=== PATIENT | female | born 1960 | race Caucasian/White ===

== ENCOUNTER 2020-07-21 19:16 | Emergency (ER) | payer SELFPAY ==
[2020-07-21] MEDS: Aspirin 81 MG Tab.Chew PO ONE ×2 (19:41→19:43)
--- NOTE | 2020-07-21 19:57 | PCM.EKG ---
#1 Interpretation EKG Date: 07/21/20 Time: 19:16 Rhythm: NSR Rate (Beats/Min): 76 [place]: Normal P-Wave: Present QRS: Normal ST-T: Normal QT: Normal Comparison: NA - No Prior EKG EKG Interpretation Comments: Sinus Rhythm with occasional PVC
--- NOTE | 2020-07-21 20:01 | CR ---
INDICATION: weakness, shortness of breath CHEST, ONE VIEW An AP radiograph of the chest was performed. Comparison: No previous studies are currently available for comparison. The lungs appear clear and no pleural effusions are identified. The cardiomediastinal silhouette and pulmonary vasculature appear normal, as do the visualized bones. IMPRESSION: No acute intrathoracic abnormality identified. DON NIX MD [facility] Dictated by: Stephen Nix MD @ 07/21/2020 19:59:16 (Electronically Signed)
[2020-07-21 20:17] LABS: BLOOD UREA NITROGEN,BUN 13 mg/dL (7.0-18.0); CARBON DIOXIDE,CO2 27.1 mmol/L (21.0-32.0); CHLORIDE,CL 103 mmol/L (98-107); GLUCOSE RANDOM 106 mg/dL (74-106); POTASSIUM,K 3.3 mmol/L (3.5-5.1); SODIUM,NA 142 mmol/L (136-145)
[2020-07-21] MEDS ORDERED: Potassium Chloride 10% 20 MEQ/15 ML Soln 30 ML UD Cup PO ONE (20:31)
--- NOTE | 2020-07-21 21:07 | EDM.PDOC ---
ED HPI GENERAL MEDICAL PROBLEM - General Chief Complaint: Chest Pain Stated Complaint: CHEST PAIN/WEAK LEFT SIDE Time Seen by Provider: 07/21/20 19:20 - History of Present Illness INITIAL COMMENTS - FREE TEXT/NARRATIVE: CHIEF COMPLAINT(S): "My thyroid has been messed up since Covid." HISTORY OF PRESENT ILLNESS: This is a 60-year-old woman without any significant past medical history who comes to the emergency department with a chief complaint of "my thyroid has been messed up since Covid." The patient states that she had Covid earlier this year and since that time she found out that her thyroid has been messed up. 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 She said that she has been feeling weak, tired, her hair seems to be falling out, her nails are brittle and her skin is dry. She denies any chest pain or shortness of breath. She denies any exertional dyspnea or lower extremity swelling. She states that she does just feel tired all the time. She states that she "cannot live like this anymore." She denied any suicidal ideation, suicidal attempt or homicidal ideation. She denies any history of CAD or CHF. She denies any recent travel, recent surgery, prior history of DVT or PE. She denies any other symptoms. REVIEW OF SYSTEMS: Constitutional: Positive for fatigue. Denies fever, chills. Eyes: Denies eye pain Ears, Nose, Mouth, & Throat: Denies earache, sore throat Cardiovascular: Denies chest pain, palpitations, edema Respiratory: Denies shortness of breath Gastrointestinal: Positive for nausea. Denies vomiting, diarrhea, hematochezia. Genitourinary: Denies hematuria, dysuria Skin:POsitive for dry skin and brittle nails MSK: Denies joint pain Neurological: Denies blurred vision, numbness, tingling, weakness. Psychiatric: Positive for felling depressed. PAST MEDICAL HISTORY: As per history of present illness and as reviewed below otherwise noncontributory. SURGICAL HISTORY: As per history of present illness and as reviewed below otherwise noncontributory. SOCIAL HISTORY: As per history of present illness and as reviewed below otherwise noncontributory. FAMILY HISTORY: As per history of present illness and as reviewed below otherwise noncontributory. EXAMINATION OF ORGAN SYSTEMS/BODY AREAS: Constitutional: Blood pressure was 162/73, heart rate 73, respiratory rate 18 with an oxygen saturation of 97% on room air. Temperature 36.6 General: Tearful appearing woman who is in no other acute distress Psychiatric: Tearful, appears depressed Eyes: No scleral icterus or conjunctival erythema pupils are equal round reactive to light. Extraocular movements intact. No periorbital swelling ENMT: Moist mucous membranes. No pharyngeal erythema no thyromegaly noted. Neck is supple. Trachea is midline. Cardiovascular: Regular, rate, and rhythm. No gallops, murmurs, or rubs. Bilateral upper extremity pulses symmetric and intact. No peripheral edema. No JVD. Respiratory: Lungs clear to auscultation bilaterally. No wheezes, rales, or rhonchi. Gastrointestinal: Soft, non-tender, non-distended. Normoactive bowel sounds Genitourinary: No suprapubic tenderness Musculoskeletal: Normal range of motion. Skin: Skin appears mildly dry without any excoriations. The patient has what appears to be thinning of her nails with some blackish streaks distally. Neurological: Alert, GCS 15 strength and sensation grossly intact. MEDICAL DECISION MAKING AND COURSE IN THE ED WITH INTERPRETATION/REVIEW OF DIAGNOSTIC STUDIES: This is a 60-year-old woman without any significant past medical history with recent COVID-19 infection with resultant hypothyroidism who presents with fatigue, weakness, signs of early depression, and brittle hair and nails. At this time I do believe her symptoms are likely secondary to hypothyroidism. However given her age will undergo a cardiac work-up. EKG was obtained which ischemia. Will obtain CBC, CMP, TSH, T4, urinalysis. Given the duration of her symptoms we will only obtain 1 troponin. The patient denied any chest pain. Therefore it is unlikely that she has ACS. Patient is neurologically intact therefore I do believe any imaging is indicated. Patient refused aspirin at this time because she does not feel like it is her heart. Laboratory: CBC is unremarkable. CMP reveals hypokalemia at 3.3 otherwise unremarkable. TSH is 8.7. Free T4 is 0.70 indicating hypothyroidism. Urinalysis was a clean catch and was trace for leukocyte esterase, negative for nitrites, and negative for blood. Interpretation negative The radiological images were viewed by myself along with reading the report from the radiologist. Chest x-ray does not reveal any acute cardiopulmonary process. On reevaluation, the patient was allowed her tearful and her blood pressure remained stable. I did have a lengthy discussion with her regarding hypothyroidism. She states that she does have an ultrasound tomorrow of her thyroid that was arranged by her primary care physician. I encouraged her to keep an ultrasound appointment and that managing her hypothyroidism is a long- term process. Discussed the importance of following up with her primary care physician. She was amenable to discharge at this time and had no further questions. She is to return for any new or worsening symptoms. DISPOSITION: The patient was discharged home in stable condition CONDITION: Fair PROCEDURES: None FINAL IMPRESSION(S)/DIAGNOSES: 1. Acute fatigue secondary to hypothyroidism 2. Acute brittle nails dry skin secondary to hypothyroidism Mihai Velez M.D. - Related Data Allergies Allergy/AdvReac Type Severity Reaction Status Date / Time No Known Allergies Allergy Verified 07/21/20 19:47 Home Meds: Home Meds Chlorthalidone 25 mg PO DAILY 07/21/20 [History] Thyroid,Pork [Traffic Signal Supervisor Maintenance Thyroid] 1 tab PO DAILY 07/21/20 [History] lisinopriL [Lisinopril] 5 mg PO DAILY 07/21/20 [History] Ondansetron [Zofran ODT] 4 mg PO Q6H PRN #10 tab.dis 07/23/20 [Rx] Past Medical History HEENT History: Reports: None Cardiovascular History: Reports: Hypertension Respiratory History: Reports: COPD Gastrointestinal History: Reports: None Genitourinary History: Reports: None 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: Musculoskeletal History: Reports: None Neurological History: Reports: None Psychiatric History: Reports: None Endocrine/Metabolic History: Reports: Other (See Below) Other Endocrine/Metabolic History: Ward 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 Pump Model 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: None Hematologic History: Reports: None Immunologic History: Reports: None Oncologic (Cancer) History: Reports: None Dermatologic History: Reports: None - Infectious Disease History Infectious Disease History: Reports: Chicken Pox, Measles - Past Surgical History Head Surgeries/Procedures: Reports: None Female Surgical History: Reports: Section Social & Family History - Caffeine Use Caffeine Use: Reports: Coffee ED ROS GENERAL - Review of Systems Review Of Systems: See Below ED EXAM, GENERAL - Physical Exam Exam: See Below Course - Vital Signs Last Recorded V/S: Last Vital Signs Temp 36.2 C 07/21/20 21:15 Pulse 70 07/21/20 21:15 Resp 18 07/21/20 21:15 BP 143/84 H 07/21/20 21:15 Pulse Ox 97 07/21/20 21:15 - Orders/Labs/Meds Labs: Laboratory Tests 07/21/20 07/21/20 07/21/20 Range/Units 19:25 19:25 19:25 WBC 9.38 (4.0-11.0) K/uL RBC 5.14 (4.30-5.90) M/uL Hgb 16.0 (12.0-16.0) g/dL Hct 46.6 H (36.0-46.0) % MCV 90.7 (80.0-98.0) fL MCH 31.1 (27.0-32.0) pg MCHC 34.3 (31.0-37.0) g/dL RDW Std Deviation 47.1 (28.0-62.0) fl RDW Coeff of Rubén 14 (11.0-15.0) % Plt Count 380 (150-400) K/uL MPV 10.00 (7.40-12.00) fL Neut % (Auto) 61.8 (48.0-80.0) % Lymph % (Auto) 30.3 (16.0-40.0) % [place] % (Auto) 7.2 (0.0-15.0) % Eos % (Auto) 0.4 (0.0-7.0) % Baso % (Auto) 0.3 (0.0-1.5) % Neut # (Auto) 5.8 H (1.4-5.7) K/uL Lymph # (Auto) 2.8 H (0.6-2.4) K/uL [place] # (Auto) 0.7 (0.0-0.8) K/uL Eos # (Auto) 0.0 (0.0-0.7) K/uL Baso # (Auto) 0.0 (0.0-0.1) K/uL Nucleated RBC % 0.0 /100WBC Nucleated RBCs # 0 K/uL Sodium 142 (136-145) mmol/L Potassium 3.3 L (3.5-5.1) mmol/L Chloride 103 (98-107) mmol/L Carbon Dioxide 27.1 (21.0-32.0) mmol/L BUN 13 (7.0-18.0) mg/dL Creatinine 0.9 (0.6-1.0) mg/dL Est Cr Clr Drug Dosing TNP Estimated GFR (MDRD) > 60.0 ml/min Glucose 106 (74-106) mg/dL Calcium 10.0 (8.5-10.1) mg/dL Magnesium 2.3 (1.8-2.4) mg/dL Total Bilirubin 0.3 (0.2-1.0) mg/dL AST 15 (15-37) IU/L ALT 18 (14-63) IU/L Alkaline Phosphatase 101 (46-116) U/L B-Natriuretic Peptide 6 (<100) PG/ML Total Protein 8.5 H (6.4-8.2) g/dL Albumin 4.3 (3.4-5.0) g/dL Globulin 4.2 H (2.6-4.0) g/dL Albumin/Globulin Ratio 1.0 (0.9-1.6) Free T4 0.70 L (0.76-1.46) ng/dL TSH 3rd Generation 8.87 H (0.36-3.74) uIU/mL Urine Color Urine Appearance Urine pH (5.0-8.0) Ur Specific [place] (1.001-1.035) Urine Protein (NEGATIVE) mg/dL Urine Glucose (UA) (NEGATIVE) mg/dL Urine Ketones (NEGATIVE) mg/dL Urine Occult Blood (NEGATIVE) Urine Nitrite (NEGATIVE) Urine Bilirubin (NEGATIVE) Urine Urobilinogen (<2.0) EU/dL Ur Leukocyte Esterase (NEGATIVE) Urine RBC (0-2/HPF) Urine WBC (0-5/HPF) Ur Epithelial Cells (NONE-FEW) Urine Bacteria (NEGATIVE) 07/21/20 Range/Units 19:47 WBC (4.0-11.0) K/uL RBC (4.30-5.90) M/uL Hgb (12.0-16.0) g/dL Hct (36.0-46.0) % MCV (80.0-98.0) fL MCH (27.0-32.0) pg MCHC (31.0-37.0) g/dL RDW Std Deviation (28.0-62.0) fl RDW Coeff of Rubén (11.0-15.0) % Plt Count (150-400) K/uL MPV (7.40-12.00) fL Neut % (Auto) (48.0-80.0) % Lymph % (Auto) (16.0-40.0) % [place] % (Auto) (0.0-15.0) % Eos % (Auto) (0.0-7.0) % Baso % (Auto) (0.0-1.5) % Neut # (Auto) (1.4-5.7) K/uL Lymph # (Auto) (0.6-2.4) K/uL [place] # (Auto) (0.0-0.8) K/uL Eos # (Auto) (0.0-0.7) K/uL Baso # (Auto) (0.0-0.1) K/uL Nucleated RBC % /100WBC Nucleated RBCs # K/uL Sodium (136-145) mmol/L Potassium (3.5-5.1) mmol/L Chloride (98-107) mmol/L Carbon Dioxide (21.0-32.0) mmol/L BUN (7.0-18.0) mg/dL Creatinine (0.6-1.0) mg/dL Est Cr Clr Drug Dosing Estimated GFR (MDRD) ml/min Glucose (74-106) mg/dL Calcium (8.5-10.1) mg/dL Magnesium (1.8-2.4) mg/dL Total Bilirubin (0.2-1.0) mg/dL AST (15-37) IU/L ALT (14-63) IU/L Alkaline Phosphatase (46-116) U/L B-Natriuretic Peptide (<100) PG/ML Total Protein (6.4-8.2) g/dL Albumin (3.4-5.0) g/dL Globulin (2.6-4.0) g/dL Albumin/Globulin Ratio (0.9-1.6) Free T4 (0.76-1.46) ng/dL TSH 3rd Generation (0.36-3.74) uIU/mL Urine Color YELLOW Urine Appearance CLEAR Urine pH 6.5 (5.0-8.0) Ur Specific [place] 1.020 (1.001-1.035) Urine Protein NEGATIVE (NEGATIVE) mg/dL Urine Glucose (UA) NEGATIVE (NEGATIVE) mg/dL Urine Ketones NEGATIVE (NEGATIVE) mg/dL Urine Occult Blood NEGATIVE (NEGATIVE) Urine Nitrite NEGATIVE (NEGATIVE) Urine Bilirubin NEGATIVE (NEGATIVE) Urine Urobilinogen 0.2 (<2.0) EU/dL Ur Leukocyte Esterase TRACE H (NEGATIVE) Urine RBC 0-1 (0-2/HPF) Urine WBC 0-3 (0-5/HPF) Ur Epithelial Cells FEW (NONE-FEW) Urine Bacteria RARE (NEGATIVE) Meds: Medications Discontinued Medications Generic Name Dose Route Start Last Admin Trade Name Freq PRN Reason Stop Dose Admin Aspirin 324 mg 07/21/20 19:36 07/21/20 19:43 Aspirin PO 07/21/20 19:37 Not Given ONETIME ONE Potassium Chloride 40 meq 07/21/20 20:31 07/21/20 20:41 Potassium Chloride PO 07/21/20 20:32 40 meq ONETIME ONE Administration Departure - Departure Time of Disposition: 21:01 Disposition: Home, Self-Care 01 Condition: Fair Clinical Impression: Post-COVID syndrome Hypothyroid Qualifiers: Hypothyroidism type: unspecified Qualified Code(s): E03.9 - Hypothyroidism, unspecified - Discharge Information *PRESCRIPTION DRUG MONITORING PROGRAM REVIEWED*: No *COPY OF PRESCRIPTION DRUG MONITORING REPORT IN PATIENT JAMARCUS: No Prescriptions: Ondansetron [Zofran ODT] 4 mg PO Q6H PRN #10 tab.dis PRN Reason: Nausea Instructions: Hypokalemia, Hypothyroidism Referrals: Macy Lewis [Primary Care Provider] - Forms: ED Department Discharge Additional Instructions: You evaluate today on an emergent basis. I do believe all the symptoms you are experiencing are secondary to your hypothyroidism. Please reference the materials I provided and discussed with you regarding symptoms of hypothyroidism. Hypothyroid treatment can take months to optimize and symptoms will gradually lessen. Given that your primary care physician just changed your medication I do recommend continued use of this medication and to follow-up with your ultrasound tomorrow. I do recommend that she follow-up with her in 1 week for repeat labs to evaluate the trend. If you have any new or worsening symptoms such as chest pain, shortness of breath, passing out, or weakness in one of your extremities, trouble walking, trouble speaking or trouble swallowing please return to the emergency department. [facility] [address] [place] [address] [facility] [address] [place] [address] The patient is informed of any results of their evaluation and diagnostic workup and all questions are answered. They are given discharge instructions and return precautions. The patient is stable for discharge. The patient states they understand and agree with the plan and that they will return if their symptoms get worse or if they have any new concerns. The following information is given to patients seen in the emergency department who are being discharged to home. This information is to outline your options for follow-up care. We provide all patients seen in our emergency department with a follow-up referral. The need for follow-up, as well as the timing and circumstances, are variable depending upon the specifics of your emergency department visit. If you don't have a primary care physician on staff, we will provide you with a referral. We always advise you to contact your personal physician following an emergency department visit to inform them of the circumstance of the visit and for follow-up with them and/or the need for any referrals to a consulting specialist. The emergency department will also refer you to a specialist when appropriate. This referral assures that you have the opportunity for follow-up care with a specialist. All of these measure are taken in an effort to provide you with optimal care, which includes your follow-up. Under all circumstances we always encourage you to contact your private physician who remains a resource for coordinating your care. When calling for follow-up care, please make the office aware that this follow-up is from your recent emergency room visit. If for any reason you are refused follow-up, please contact the [facility] Emergency Department at and asked to speak to the emergency department charge nurse. Sepsis Event Note (ED) - Evaluation Sepsis Screening Result: No Definite Risk
== END 2020-07-21 21:15 | disposition home or self-care (01) ==
LOC: MW.ED 19:16
DX: E03.9 Hypothyroidism, unspecified (principal); R53.1 Weakness; R53.83 Other fatigue; I10 Essential (primary) hypertension; J44.9 Chronic obstructive pulmonary disease, unspecified; Z79.899 Other long term (current) drug therapy; Z86.16 Personal history of COVID-19
CPT/HCPCS: 36415; 71045; 80053; 81001; 83735; 83880; 84439; 84443; 85025; 93005; 99285; A9270; 99283

== ENCOUNTER 2021-10-24 12:19 | Emergency (ER) | payer SELFPAY ==
[2021-10-24] MEDS ORDERED: Sodium Chloride 0.9% 10 ML Syringe FLUSH PRN (12:21)
[2021-10-24] MEDS ORDERED: Aspirin 81 MG Tab.Chew PO ONE (12:21)
[2021-10-24] MEDS ORDERED: Sodium Chloride 0.9% 2.5 ML Syringe FLUSH PRN (12:21)
[2021-10-24 13:02] LABS: BLOOD UREA NITROGEN,BUN 14 mg/dL (7.0-18.0); CARBON DIOXIDE,CO2 29.5 mmol/L (21.0-32.0); CHLORIDE,CL 99 mmol/L (98-107); GLUCOSE RANDOM 108 mg/dL (74-106); POTASSIUM,K 3.3 mmol/L (3.5-5.1); SODIUM,NA 136 mmol/L (136-145)
[2021-10-24 13:17] LABS: CORONAVIRUS COVID-19 NAA NEGATIVE (NEGATIVE); INFLUENZA A NAA NEGATIVE (NEGATIVE); INFLUENZA B NAA NEGATIVE (NEGATIVE)
[2021-10-24] MEDS ORDERED: Ketorolac 30 MG/ML SDV IVPUSH ONE (13:23)
== END 2021-10-24 14:05 | disposition home or self-care (01) ==
LOC: MW.ED 12:19
DX: R07.89 Other chest pain (principal); I10 Essential (primary) hypertension; J44.9 Chronic obstructive pulmonary disease, unspecified; Z20.822 Contact with and (suspected) exposure to COVID-19; Z88.1 Allergy status to other antibiotic agents
CPT/HCPCS: 0240U; 36415; 71045; 80053; 83735; 84443; 84484; 85025; 93005; 96374; 99285; A9270; J1885; J3490

== ENCOUNTER 2022-04-07 11:08 | Day surgery (SDC) | payer SELFPAY ==
[~2022-04-07 11:08] MED LIST: Dexamethasone 4 MG/ML 5 ML MDV ONE; Lactated Ringers 1,000 ML IV SCH; Propofol 200 MG/20 ML SDV ONE; Rocuronium Bromide 50 MG/5 ML Syringe ONE; Ropivacaine 0.5% 5 MG/ML 30 ML SDV ONE; Sodium Chloride 0.9% 10 ML Syringe FLUSH PRN; Sodium Chloride 0.9% 2.5 ML Syringe FLUSH PRN; Sodium Chloride 0.9% 20 ML SDV IV PRN; ceFAZolin 2 GM in Premix Bag 1 BAG IV ONE; fentaNYL 250 MCG/5 ML SDV ONE
[2022-04-07] MEDS ORDERED: Famotidine 20 MG/2 ML SDV ONE (12:05)
[2022-04-07] MEDS ORDERED: Bupivacaine 0.5% 30 ML SDV ONE (12:31)
[2022-04-07] MEDS ORDERED: fentaNYL 100 MCG/2 ML SDV ONE ×4 (13:08→13:40)
[2022-04-07] MEDS ORDERED: ceFAZolin 1 GM Vial ONE (13:13)
[2022-04-07] MEDS ORDERED: ePHEDrine 50 MG/ML SDV ONE (13:16)
[2022-04-07] MEDS ORDERED: Ketorolac 30 MG/ML SDV ONE (13:48)
[2022-04-07] MEDS ORDERED: Sugammadex Sodium 200 MG/2 ML VIAL ONE (13:48)
[2022-04-07] MEDS ORDERED: Ondansetron 4 MG/2 ML SDV ONE (13:48)
== END 2022-04-07 16:20 | disposition home or self-care (01) ==
LOC: MW.SDS 11:08
PROVIDERS: ATTEND Surgery
DX: K82.8 Other specified diseases of gallbladder (principal); K42.9 Umbilical hernia without obstruction or gangrene; E03.9 Hypothyroidism, unspecified; I10 Essential (primary) hypertension; K21.9 Gastro-esophageal reflux disease without esophagitis; M19.90 Unspecified osteoarthritis, unspecified site; E06.3 Autoimmune thyroiditis; Z90.49 Acquired absence of other specified parts of digestive tract; Z98.890 Other specified postprocedural states; Z88.1 Allergy status to other antibiotic agents; Z87.891 Personal history of nicotine dependence; Z79.890 Hormone replacement therapy
CPT/HCPCS: 47562; J0131; J0690; J1100; J1885; J2405; J2704; J2795; J3010; J3490; J7120; 00790; 64488